=== PATIENT | female | born 1950 | race Caucasian/White ===

== ENCOUNTER → 2025-06-10 10:29 | Outpatient (REF) | payer MEDICARE, SELFPAY | LOC: RAD 10:29 | PROVIDERS: ATTENDING PHYSICIAN Internal Medicine | DX: R29.6 Repeated falls (principal); Z13.820 Encounter for screening for osteoporosis; M79.661 Pain in right lower leg; S09.93XA Unspecified injury of face, initial encounter | CPT/HCPCS: 70150; 73560; 73590 ==

== ENCOUNTER → 2025-08-12 11:38 | Outpatient (REF) | payer MEDICARE, SELFPAY | LOC: RAD 11:38 | PROVIDERS: ATTENDING PHYSICIAN Internal Medicine | DX: Z13.820 Encounter for screening for osteoporosis (principal); Z78.0 Asymptomatic menopausal state; M85.88 Other specified disorders of bone density and structure, other site; R29.6 Repeated falls | CPT/HCPCS: 77080 ==